=== PATIENT | female | born 1935 | race Caucasian/White ===

== ENCOUNTER → 2016-09-29 | Day surgery (SDC) | payer MEDICARE ==
[~2016-09-29] MED LIST: LIDOCAINE 2% JELLY 5 ML TUBE ONE
== END ==
LOC: END 08:57
PROVIDERS: ATTEND Thoracic Surgery (Cardiothoracic Vascular Surgery)
PROC: 4A0B7BZ Measurement of Gastrointestinal Pressure, Via Natural or Artificial Opening (ICD-10-PCS; principal; 2016-09-29)
PROC: 4A0B78Z Measurement of Gastrointestinal Motility, Via Natural or Artificial Opening (ICD-10-PCS; 2016-09-29)
DX: K44.9 Diaphragmatic hernia without obstruction or gangrene (principal)
CPT/HCPCS: 91010; 91034

== ENCOUNTER 2018-01-22 18:57 | Emergency (ER) | payer MEDICARE ==
--- NOTE | 2018-01-22 19:51 | ER Document Report ---
ED Medical Screen (RME) - General Chief Complaint: Hip Pain Stated Complaint: HIP/THIGH/KNEE PAIN Time Seen by Provider: 01/22/18 19:47 TRAVEL OUTSIDE OF THE [place] IN LAST 30 DAYS: No - HPI Notes: 01/22/18 19:50 Falls 2 weeks ago continues to have pain - Related Data Allergies/Adverse Reactions: No Known Allergies Allergy (Unverified 01/22/18 19:28) Past Medical History - Social History Chew tobacco use (# tins/day): No Frequency of alcohol use: None Drug Abuse: None Renal/ Medical History: Denies: Hx Peritoneal Dialysis Review of Systems - Review of Systems Constitutional: Other - Hip pain knee pain Physical Exam - Vital signs Vitals: Temp Pulse BP Pulse Ox 98.2 F 63 109/40 L 92 01/22/18 19:30 01/22/18 19:30 01/22/18 19:30 01/22/18 19:30 - Respiratory Respiratory status: No respiratory distress Chest status: Nontender Breath sounds: Normal Chest palpation: Normal Course - Vital Signs Vital signs: Temp Pulse Resp BP Pulse Ox 98.2 F 63 109/40 L 92 01/22/18 19:30 01/22/18 19:30 01/22/18 19:30 01/22/18 19:30
[2018-01-22] MEDS ORDERED: MORPHINE SULFATE 10 MG/ML INJ IV ONE (20:38)
--- NOTE | 2018-01-22 20:38 | RADIOLOGY REPORT (SQ) ---
EXAM DESCRIPTION: KNEE RIGHT 3 VIEWS COMPLETED DATE/TIME: 01/22/2018 8:20 pm REASON FOR STUDY: pain soft tissue swelling for 2 weeks, no known injury COMPARISON: None. NUMBER OF VIEWS: Three views TECHNIQUE: AP, lateral, and sunrise patella radiographic images acquired of the right knee. LIMITATIONS: None. FINDINGS: MINERALIZATION: Osteopenic BONES: No acute fracture or dislocation. No worrisome bone lesions. JOINT: No effusion. SOFT TISSUES: No soft tissue swelling. No radio-opaque foreign body. OTHER: No other significant finding. IMPRESSION: NEGATIVE STUDY OF THE RIGHT KNEE. NO RADIOGRAPHIC EVIDENCE OF ACUTE INJURY. TECHNICAL DOCUMENTATION: JOB ID: [id number] [employer]- All Rights Reserved Reading location - IP/workstation name: [email or web address]
--- NOTE | 2018-01-22 20:40 | RADIOLOGY REPORT (SQ) ---
EXAM DESCRIPTION: HIP RIGHT AP/LATERAL COMPLETED DATE/TIME: 01/22/2018 8:20 pm REASON FOR STUDY: pain COMPARISON: None. NUMBER OF VIEWS: Two views. TECHNIQUE: AP pelvis and additional frog-leg view of the right hip. LIMITATIONS: None. FINDINGS: MINERALIZATION: Osteoporotic RIGHT HIP: Advanced osteoarthritis with a [id number] appearance, bulky bony spurring along the acet abular rim. Mild flattening and sclerosis of the right femoral head articular surface. No acute fra cture is identified. LEFT HIP: Mild joint space narrowing and bony spurring. No acute fracture PUBIS AND ISCHIUM: Next PELVIS: No gross acute fracture SACRUM: No fracture or dislocation. No worrisome bone lesions. LOWER LUMBAR SPINE: Not well seen SOFT TISSUES: Atherosclerotic aortoiliac calcification OTHER: No other significant finding. IMPRESSION: Advanced osteoarthritis right hip. No plain radiographic evidence of acute fracture. TECHNICAL DOCUMENTATION: JOB ID: [id number] [employer]- All Rights Reserved Reading location - IP/workstation name: [email or web address]
--- NOTE | 2018-01-22 20:44 | ER Document Report ---
ED Hip Pain/Injury - General Chief Complaint: Hip Pain Stated Complaint: HIP/THIGH/KNEE PAIN Time Seen by Provider: 01/22/18 19:47 Information source: Patient TRAVEL OUTSIDE OF THE [place] IN LAST 30 DAYS: No - HPI Patient complains to provider of: Injury Occurred: Other - 2 weeks ago Where: Home Onset/Duration: Worse Quality of pain: Sharp Severity: Moderate Context: Fell/lost balance Symptoms prior to fall: None Symptoms since fall: None Associated Symptoms: None Notes: Patient presents to the emergency room for pain in her right knee and hip. She sustained a fall 2 weeks ago while transferring and fell on her right side. The fall was mechanical and she did not lose consciousness or hit her head. EMS did evaluate her at home and recommended transfer to the hospital which she declined. Since then she has had worsening pain in her right hip and knee. Pain is worse with movement and slightly relieved with rest. She has been taking Ultram and Tylenol at home which only minimally improve her pain. Now she states her pain is getting worse. Her caregiver states her right hip became bruised 2 days after the fall. She has not seen any physician for her pain since the fall. - Related Data Allergies/Adverse Reactions: No Known Allergies Allergy (Unverified 01/22/18 19:28) Past Medical History - Social History Smoking Status: Never Smoker Chew tobacco use (# tins/day): No Frequency of alcohol use: None Drug Abuse: None Family History: Reviewed & Not Pertinent Patient has suicidal ideation: No Patient has homicidal ideation: No - Past Medical History Cardiac Medical History: Reports: Hx Hypercholesterolemia, Hx Hypertension Renal/ Medical History: Denies: Hx Peritoneal Dialysis Psychiatric Medical History: Reports: Hx Depression - anxiety Past Surgical History: Reports: Hx Appendectomy, Hx Hysterectomy, Hx Oral Surgery - LLE amputation Other: Left AKA - Immunizations Immunizations up to date: Yes Review of Systems - Review of Systems Notes: REVIEW OF SYSTEMS: CONSTITUTIONAL : Denies fever, chills, or sweats. Denies recent illness. EENT: Denies eye, ear, throat, or mouth pain or symptoms. Denies nasal or sinus congestion. CARDIOVASCULAR: Denies chest pain. RESPIRATORY: Denies cough, cold, or chest congestion. Denies shortness of breath, difficulty breathing, or wheezing. GASTROINTESTINAL: Denies abdominal pain. Denies nausea, vomiting, or diarrhea. Denies constipation. GENITOURINARY: Denies difficulty urinating, painful urination and urinary frequency. MUSCULOSKELETAL: Denies neck or back pain. or joint pain. SKIN: Ecchymosis. Denies rash. HEMATOLOGIC : Denies easy bruising or bleeding. LYMPHATIC: Denies swollen, enlarged glands. NEUROLOGICAL: Denies altered mental status. Denies headache. Denies weakness or paralysis. Denies problems with gait or speech. Denies sensory or motor loss. PSYCHIATRIC: Denies anxiety or depression. ALL OTHER SYSTEMS REVIEWED AND NEGATIVE. Physical Exam - Vital signs Vitals: Temp Pulse BP Pulse Ox 98.2 F 63 109/40 L 92 01/22/18 19:30 01/22/18 19:30 01/22/18 19:30 01/22/18 19:30 - Notes Notes: PHYSICAL EXAMINATION: GENERAL: Well-appearing, well-nourished and in no acute distress. HEAD: Atraumatic, normocephalic. EYES: Pupils equal round and reactive to light, extraocular movements intact, conjunctiva are normal. ENT: nares patent, oropharynx clear without exudates. Moist mucous membranes. NECK: Normal range of motion, supple without lymphadenopathy LUNGS: Breath sounds clear to auscultation bilaterally and equal. No wheezes rales or rhonchi. HEART: Regular rate and rhythm without murmurs ABDOMEN: Soft, nontender, normoactive bowel sounds. No guarding, no rebound. No masses appreciated. EXTREMITIES: Decreased range of motion of right hip. Lateral right hip tenderness and ecchymosis. Normal range of motion of right knee with mild right knee joint line tenderness. No right knee bony tenderness or deformity. Pelvis stable. Normal right ankle exam. No pitting edema. No cyanosis. Left AKA NEUROLOGICAL: No focal neurological deficits. Moves all extremities spontaneously and on command. PSYCH: Normal mood, normal affect. SKIN: Right hip ecchymosis .warm, Dry, normal turgor, no rashes or lesions noted. Course - Re-evaluation Re-evalutation: 01/22/18 20:44 Vitals reviewed and stable. Patient given morphine for pain. X-ray shows severe arthritis in the right hip with no acute fracture. X-ray of the right knee shows no acute injury as well. Patient does have significant pain in her right hip and CT scan was obtained to evaluate for occult hip fracture, CT was negative. Patient will be discharged home in stable condition with a prescription for Montgomery for acute exacerbation of pain. She will follow with her primary care for close follow-up. 01/22/18 22:31 01/22/18 22:37 Hip/Pelvis X-Ray 01/22/18 19:50 IMPRESSION: Advanced osteoarthritis right hip. No plain radiographic evidence of acute fracture. Knee X-Ray 01/22/18 19:50 IMPRESSION: NEGATIVE STUDY OF THE RIGHT KNEE. NO RADIOGRAPHIC EVIDENCE OF ACUTE INJURY. Lower Extremity CT 01/22/18 20:54 IMPRESSION: 1. No acute fracture or malalignment. 2. Severe degenerative changes of the right hip joint. - Vital Signs Vital signs: Temp Pulse Resp BP Pulse Ox 98.2 F 63 109/40 L 92 01/22/18 19:30 01/22/18 19:30 01/22/18 19:30 01/22/18 19:30 Discharge - Discharge Clinical Impression: Right knee pain, Right hip pain, Fall Condition: Stable Disposition: HOME, SELF-CARE Instructions: Arthritis ([facility]), Contusion ([facility]) Prescriptions: Hydrocodone/Acetaminophen [Montgomery 5-325 mg Tablet] 1 tab PO Q8H PRN 3 Days #9 tablet PRN Reason: Pain Scale Of 5 Referrals: NATANAEL CAMP JR, MD [Primary Care Provider] - Follow up as needed
--- NOTE | 2018-01-22 22:31 | RADIOLOGY REPORT (SQ) ---
CT LOWER EXTREMITY WITHOUT IV CONTRAST HISTORY: Hip pain. COMPARISON: Radiographs from earlier the same day. TECHNIQUE: CT scan of the right hip. This exam was performed according to our departmental dose-optimization program, which includes automated exposure control, adjustment of the mA and/or kV according to patient size and/or use of iterative reconstruction technique. FINDINGS: No acute fracture or malalignment. Old healed bilateral superior and inferior pubic rami fractures. Severe degenerative changes of the right hip joint with complete joint space loss and [id number] apposition, subchondral sclerosis and osteophytosis. Lesser degenerative changes are seen at the right sacroiliac joint and pubic symphysis. Partially visualized levocurvature of the lumbar spine with superimposed degenerative changes. Marked fatty infiltration of the right gluteus minimus muscle. Visualized intrapelvic structures demonstrate sigmoid colon diverticulosis. IMPRESSION: 1. No acute fracture or malalignment. 2. Severe degenerative changes of the right hip joint.
[2018-01-22 22:47] VITALS: BP 125/53
== END 2018-01-22 22:47 | disposition home or self-care (01) ==
LOC: ER 18:57
DX: S70.01XA Contusion of right hip, initial encounter (principal); M25.551 Pain in right hip; M25.561 Pain in right knee; W19.XXXA Unspecified fall, initial encounter; Z79.899 Other long term (current) drug therapy; I10 Essential (primary) hypertension
CPT/HCPCS: 99284; 96374; 73502; 73562; 73700; J2270